=== PATIENT | female | born 1950 | race Caucasian/White ===

== ENCOUNTER 2020-11-09 22:08 | Emergency (ER) | payer MEDICARE, OTHER ==
[~2020-11-09] VITALS: Ht 160 cm; Wt 43.1 kg
[2020-11-09] MEDS ORDERED: IV NORMAL SALINE 1000ML BAG 1,000 ML IV SCH (22:45)
--- NOTE | 2020-11-09 23:31 | EKG ---
[facility] [address] [place] [address] Test Date: 2020-11-09 Test Time: 22:45:16 Pat Name: ANGEL CEE Department: Room: Gender: F Community [facility] Agent: : [id number] Requested By: CJ COLEMAN Order Number: [id number] Reading MD: Measurements Intervals [place] Rate: 66 P: FL: QRS: 3 QRSD: 86 T: 38 QT: 420 QTc: 442 Interpretive Statements ATRIAL FLUTTER ABNORMAL ECG RI6.01 No previous ECG available for comparison
[2020-11-09 23:33] LABS: BILIRUBIN,URINE NEGATIVE (NEG); CLARITY,URINE CLEAR; COLOR,URINE YELLOW; NITRITE,URINE NEGATIVE (NEG); PH,URINE 8.5 (<5.0-8.0); PROTEIN,URINE NEGATIVE (NEG-TRACE)
[2020-11-09 23:34] LABS: BASO # 0.1 x10^3/uL (0.0-0.2); BASO % 1 % (0-3); EOS # 0.1 x10^3/uL (0.0-0.7); EOS % 2 % (0-3); HEMATOCRIT 39.4 % (36.0-47.0); HEMOGLOBIN 13.7 g/dL (12.0-15.5); LYMPH # 2.2 x10^3/uL (1.0-4.8); LYMPH % 38 % (24-48); MEAN CORPUSCULAR HEMOGLOBIN 33 pg (25-35); MEAN CORPUSCULAR HGB CONC 35 g/dL (31-37); MEAN CORPUSCULAR VOLUME 94 fL (79-100); MONO # 0.7 x10^3/uL (0.0-1.1); MONO % 13 % (0-9); NEUT # 2.6 x10^3/uL (1.8-7.7); NEUT % 46 % (31-73); PLATELET COUNT 295 x10^3/uL (140-400); RED CELL DISTRIBUTION WIDTH 13.5 % (11.5-14.5); WHITE BLOOD COUNT 5.7 x10^3/uL (4.0-11.0)
--- NOTE | 2020-11-09 23:40 | PHYS DOC ---
Adult General Chief Complaint Chief Complaint: SHORTNESS OF BREATH HPI HPI Patient is a 70 year old female with a known past medical history of parkinsonism brought to the emergency department by due to concern for episode of shortness of breath. notes that over the last few months patient has been having episodes where it appears that she is having difficulty getting full breaths. has a recording with the patient was in the car and seemed agitated, and also clenching and appeared like she was having difficulty taking full breaths. No reported recent fevers, chills or other changes. also notes that patient has had 2 days of unusual left anterior breast deformity. States that he noted 3 days ago that there are some bruising of the left anterior chest and breast and then she had some swelling in the area. Review of Systems Review of Systems Constitutional: Denies fever or chills [] Eyes: Denies change in visual acuity, redness, or eye pain [] HENT: Denies nasal congestion or sore throat [] Respiratory: Denies cough or shortness of breath [] Cardiovascular: No additional information not addressed in HPI [] GI: Denies abdominal pain, nausea, vomiting, bloody stools or diarrhea [] : Denies dysuria or hematuria [] Musculoskeletal: Denies back pain or joint pain [] Integument: Denies rash or skin lesions [] Neurologic: Denies headache, focal weakness or sensory changes [] Endocrine: Denies polyuria or polydipsia [] All other systems were reviewed and found to be within normal limits, except as documented in this note. Current Medications Current Medications Current Medications Medications (Trade) Dose Ordered Sig/Eliel Start Time Stop Time Status Last Admin Dose Admin Info (CONTRAST GIVEN -- Rx MONITORING) 1 each PRN DAILY PRN 11/10/20 02:00 11/12/20 01:59 Iohexol (Omnipaque 350 Mg/ml) 80 ml 1X ONCE 11/10/20 02:00 11/10/20 02:01 DC Sodium Chloride 1,000 ml @ 1,000 mls/hr Q1H 11/09/20 22:45 11/09/20 23:44 DC 11/09/20 23:14 1,000 MLS/HR Allergies Allergies Allergies Coded Allergies Type Severity Reaction Last Updated Verified Penicillins Allergy Severe Unknown 11/09/20 Yes amantadine Allergy Intermediate 11/09/20 Yes Physical Exam Physical Exam Constitutional: Well developed, well nourished, no acute distress, non-toxic appearance. [] HENT: Normocephalic, atraumatic, bilateral external ears normal, oropharynx moist, no oral exudates, nose normal. [] Eyes: PERRLA, EOMI, conjunctiva normal, no discharge. [] Neck: Normal range of motion, no tenderness, supple, no stridor. [] Cardiovascular:Heart rate regular rhythm, no murmur [] Lungs & Thorax: Bilateral breath sounds clear to auscultation [] Abdomen: Bowel sounds normal, soft, no tenderness, no masses, no pulsatile masses. [] Skin: Warm, dry, no erythema, no rash. [] Back: No tenderness, no CVA tenderness. [] Extremities: No tenderness, no cyanosis, no clubbing, ROM intact, no edema. [] Neurologic: Alert and oriented X 3, normal motor function, normal sensory function, no focal deficits noted. [] Psychologic: Affect normal, judgement normal, mood normal. [] Current Patient Data Vital Signs Vital Signs Date Time Temp Pulse Resp B/P (MAP) Pulse Ox O2 Delivery O2 Flow Rate FiO2 11/10/20 00:26 66 21 116/72 (87) 96 Room Air 11/09/20 23:30 97.9 97.9 Lab Values Laboratory Tests Test 11/09/20 22:57 11/09/20 23:10 White Blood Count 5.7 x10^3/uL (4.0-11.0) Red Blood Count 4.20 x10^6/uL (3.50-5.40) Hemoglobin 13.7 g/dL (12.0-15.5) Hematocrit 39.4 % (36.0-47.0) Mean Corpuscular Volume 94 fL (79-100) Mean Corpuscular Hemoglobin 33 pg (25-35) Mean Corpuscular Hemoglobin Concent 35 g/dL (31-37) Red Cell Distribution Width 13.5 % (11.5-14.5) Platelet Count 295 x10^3/uL (140-400) Neutrophils (%) (Auto) 46 % (31-73) Lymphocytes (%) (Auto) 38 % (24-48) Monocytes (%) (Auto) 13 % (0-9) H Eosinophils (%) (Auto) 2 % (0-3) Basophils (%) (Auto) 1 % (0-3) Neutrophils # (Auto) 2.6 x10^3/uL (1.8-7.7) Lymphocytes # (Auto) 2.2 x10^3/uL (1.0-4.8) Monocytes # (Auto) 0.7 x10^3/uL (0.0-1.1) Eosinophils # (Auto) 0.1 x10^3/uL (0.0-0.7) Basophils # (Auto) 0.1 x10^3/uL (0.0-0.2) D-Dimer (Andree) 1.56 ug/mlFEU (0.00-0.50) H Sodium Level 145 mmol/L (136-145) Potassium Level 3.7 mmol/L (3.5-5.1) Chloride Level 105 mmol/L (98-107) Carbon Dioxide Level 29 mmol/L (21-32) Anion Gap 11 (6-14) Blood Urea Nitrogen 14 mg/dL (7-20) Creatinine 0.8 mg/dL (0.6-1.0) Estimated GFR (Cockcroft-Gault) 70.5 BUN/Creatinine Ratio 18 (6-20) Glucose Level 95 mg/dL (70-99) Calcium Level 9.1 mg/dL (8.5-10.1) Magnesium Level 2.2 mg/dL (1.8-2.4) Total Bilirubin 0.5 mg/dL (0.2-1.0) Aspartate Amino Transferase (AST) 25 U/L (15-37) Alanine Aminotransferase (ALT) 18 U/L (14-59) Alkaline Phosphatase 72 U/L (46-116) Troponin I Quantitative < 0.017 ng/mL (0.000-0.055) GP-Vlx-L-Type Natriuretic Peptide 251 pg/mL (0-124) H Total Protein 6.5 g/dL (6.4-8.2) Albumin 3.8 g/dL (3.4-5.0) Albumin/Globulin Ratio 1.4 (1.0-1.7) Lipase 116 U/L (73-393) Urine Collection Type U cath Urine Color Yellow Urine Clarity Clear Urine pH 8.5 (<5.0-8.0) Urine Specific [place] 1.025 (1.000-1.030) Urine Protein Negative mg/dL (NEG-TRACE) Urine Glucose (UA) Negative mg/dL (NEG) Urine Ketones (Stick) Trace mg/dL (NEG) Urine Blood Negative (NEG) Urine Nitrite Negative (NEG) Urine Bilirubin Negative (NEG) Urine Urobilinogen Dipstick 1.0 mg/dL (0.2 mg/dL) Urine Leukocyte Esterase Trace (NEG) Urine RBC Occ /HPF (0-2) Urine WBC 1-4 /HPF (0-4) Urine Squamous Epithelial Cells Few /LPF Urine Bacteria 0 /HPF (0-FEW) Urine Mucus Marked /LPF Laboratory Tests 11/09/20 22:57 Laboratory Tests 11/09/20 22:57 EKG EKG [] Radiology/Procedures Radiology/Procedures Study: XR CHEST 1V Indication: Shortness of breath. Comparison: None. Findings: The cardiomediastinal silhouette is within normal limits for size. Aortic calcific atherosclerosis. No radiographic abnormality of the mehreen. No lobar consolidation, layering effusion or pneumothorax. Mild biapical scarring. Ovoid density projecting over the posterior right 10th rib is favored summation artifact. Mildly increased interstitial markings. Osteopenia. A few chronic appearing rib fractures. Impression: 1. No definitive acute radiographic abnormality of the chest. 2. Ovoid density at the right lower lung projecting over the 10th rib is favored summation artifact but consider follow-up PA/lateral chest radiographs in 1 month. Electronically signed by: HAYDEN VASQUEZ MD (11/09/2020 11:48 PM) [facility] Course & Med Decision Making Course & Med Decision Making Pertinent Labs and Imaging studies reviewed. (See chart for details) 70-year-old female with a nonspecific episode of possible difficulty breathing and gasping with nonspecific likely secondary to neuromuscular disorder parkinsonism. Will obtain x-ray and labs to make sure there is no other underlying abnormality and reevaluate. After initial evaluation patient blood work demonstrated elevated D-dimer chest x-ray was unable to completely characterize patient's left anterior breast deformity. CT scan of the chest with angiography was ordered however after discussing this with the he states that even if the pulmonary embolism or cancer was found he would not want any escalation of care, would not want any additional medications and would not want surgery as it would decrease the patient's quality of life. At this time will hold off on CT scan we will plan to discharge the patient with plan to follow-up with her primary care physician. Corey Disclaimer Corey Disclaimer This electronic medical record was generated, in whole or in part, using a voice recognition dictation system. Departure Departure Impression: Primary Impression: Shortness of breath Disposition: HOME / SELF CARE / HOMELESS Condition: GOOD Referrals: BIB KATHLEEN MD Patient Instructions: Parkinson's Disease Additional Instructions: EMERGENCY DEPARTMENT GENERAL DISCHARGE INSTRUCTIONS Thank you for coming to [facility] Emergency Department (ED) today and trusting us with you care. We trust that you had a positive experience in our Emergency Department. If you wish to speak to the department management, you may call the Director at [phone]. YOUR FOLLOW UP INSTRUCTIONS ARE FOLLOWS: 1. Do you have a private Doctor? If you do not have a private doctor, please ask for a resource list of physicians or clinics that may be able to assist you with follow up care. 2. The Emergency Physicain has interpreted your x-rays. The X-Ray specialist will also review them. If there is a change in the findings, you will be notified in 48 hours when at all possible. 3. A lab test or culture has been done, your results will be reviewed and you will be notified if you need a change in treatment. ADDITIONAL INSTRUCTIONS AND INFORMATION: 1. Your care today has been supervised by a physician who is specially trained in emergency care. Many problems require more than one evaluation for a complete diagnosis and treatment. We recommend that you schedule your follow up appointment as r ecommended to ensure complete treatment of you illness or injury. If you are unable to obtain follow up care and continue to have a problem, or if your condition worsens, we recommend that you return to the ED. 2. We are not able to safely determine your condition over the phone nor are we able to give sound medical advice over the phone. For these safety reasons, if you call for medical advice we will ask you to come to the ED for further evaluation. 3. If you have any questions regarding these discharge instructions please call the ED at [phone]. SAFETY INFORMATION: In the interest of safety, wellness, and injury prevention; we encourage you to wear your sealbelt, if you smoke; quite smoking, and we encourage family to use a protective helmet for bicycling and other sporting events that present an increased risk for head injury. IF YOUR SYMPTOMS WORSEN OR NEW SYMPTOMS DEVELOP, OR YOU HAVE CONCERNS ABOUT YOUR CONDITION; OR IF YOUR CONDITION WORSENS WHILE YOU ARE WAITING FOR YOUR FOLLOW UP APPOINTMENT; EITHER CONTACT YOUR PRIMARY CARE DOCTOR, THE PHYSICIAN WHOSE NAME AND NUMBER YOU WERE GIVEN, OR RETURN TO THE ED IMMEDIATELY. CJ COLEMAN MD Nov 09, 2020 23:40
[2020-11-09 23:41] LABS: CALCIUM 9.1 mg/dL (8.5-10.1); CREATININE 0.8 mg/dL (0.6-1.0); GFR 70.5; POTASSIUM 3.7 mmol/L (3.5-5.1)
[2020-11-09 23:42] LABS: BACTERIA,URINE 0 /HPF (0-FEW); RBC,URINE OCC /HPF (0-2)
[2020-11-09 23:47] LABS: ALBUMIN 3.8 g/dL (3.4-5.0); ALBUMIN/GLOBULIN RATIO 1.4 (1.0-1.7); MAGNESIUM 2.2 mg/dL (1.8-2.4); TOTAL BILIRUBIN 0.5 mg/dL (0.2-1.0); TOTAL PROTEIN 6.5 g/dL (6.4-8.2)
--- NOTE | 2020-11-09 23:51 | RAD ---
Study: XR CHEST 1V Indication: Shortness of breath. Comparison: None. Findings: The cardiomediastinal silhouette is within normal limits for size. Aortic calcific atherosclerosis. N o radiographic abnormality of the mehreen. No lobar consolidation, layering effusion or pneumothorax. Mild biapical scarring. Ovoid density proj ecting over the posterior right 10th rib is favored summation artifact. Mildly increased interstitial markings. Osteopenia. A few chronic appearing rib fractures. Impression: 1. No definitive acute radiographic abnormality of the chest. 2. Ovoid density at the right lower lung projecting over the 10th rib is favored summation artifact b ut consider follow-up PA/lateral chest radiographs in 1 month. Electronically signed by: HAYDEN VASQUEZ MD (11/09/2020 11:48 PM) [facility]
[2020-11-10] MEDS ORDERED: CONTRAST GIVEN. MC PRN (02:00)
[2020-11-10] MEDS ORDERED: IOHEXOL 350 MG/ML 100 ML VIAL. IV ONE (02:00)
[2020-11-10 02:30] VITALS: BP 126/78
== END 2020-11-10 03:15 | disposition home or self-care (01) ==
LOC: ER 22:08
DX: R06.02 Shortness of breath (principal); R45.1 Restlessness and agitation; R60.0 Localized edema; G20 Parkinson's disease; Z88.0 Allergy status to penicillin; Z88.8 Allergy status to other drugs, medicaments and biological substances
CPT/HCPCS: 36415; 71045; 80053; 81001; 83690; 83735; 83880; 84484; 85025; 85379; 93005; 96360; 99285; J7030; P9612